=== PATIENT | female | born 1970 | race Caucasian/White ===

== ENCOUNTER 2017-12-14 02:40 | Emergency (ER) | payer BC ==
[2017-12-14 05:00] VITALS: BP 149/84
--- NOTE | 2017-12-14 11:41 | ER ---
DATE SEEN: 12/14/2017 TIME SEEN: 0400 hours in the morning. REASON FOR VISIT: Head injury. HISTORY OF PRESENT ILLNESS: This is a 47-year-old female, who fell at home while coming out of the bathtub. She slipped and hit her head and does not remember much. She was brought in by the ambulance. She complains of no headache, but mild neck pain. No vomiting or seizure activity. She had only one drink before when away from work. ALLERGIES: Penicillin. REVIEW OF SYSTEMS: No weakness of one side, nausea, vomiting, seizure, or visual disturbance. MEDICATIONS: Reviewed. PHYSICAL EXAMINATION: VITAL SIGNS: Normal blood pressure; initially 207/97, but came down to 146/82, temperature was 98.3, and pulse was 73. HEAD: Normocephalic. There is a bruise and two superficial lacerations about a centimeter each on the forehead. NECK: No tenderness to palpation. EYES: GAYLE. Oropharynx is clear. CHEST: Normal. CARDIOVASCULAR: Normal. MENTAL STATUS: Alert. NEUROLOGIC: Cranial nerves II through XII are grossly intact. [place] coma scale is 15/15. No neurological deficits were noted or lateralizing signs. LABORATORY DATA: CBC and CMP were normal. DIAGNOSTIC STUDIES: CT of head and neck was negative. IMPRESSION: 1. Head injury. 2. Fall, initial encounter. 3. Simple laceration. PLAN: 1. Steri-Strips to the lacerations and wound care. 2. Tylenol and ibuprofen p.r.n. for pain. The patient is discharged home. Return to the ED with worsening symptoms. Return to PCP p.r.n. /[id number] DREW/PAL
== END 2017-12-14 05:18 | disposition home or self-care (01) ==
LOC: FB.ED 02:40
DX: S01.81XA Laceration without foreign body of other part of head, initial encounter (principal); W19.XXXA Unspecified fall, initial encounter
CPT/HCPCS: 36415; 70450; 72125; 80048; 85025; 93005; 99284

== ENCOUNTER 2018-03-12 02:35 | Emergency (ER) | payer BC ==
[2018-03-12] MEDS: Nitroglycerin 0.4 MG Tab.SL SL PRN ×3 (03:15→03:37)
[2018-03-12] MEDS ORDERED: Aspirin 81 MG Tab.Chew PO ONE (03:28)
[2018-03-12] MEDS ORDERED: Metoprolol Tartrate 25 MG Tab ONE (03:33)
[2018-03-12] MEDS ORDERED: Metoprolol Tartrate 50 MG Tab PO ONE (06:56)
[2018-03-12] MEDS ORDERED: Sodium Chloride 0.9% 10 ML Syringe FLUSH PRN (22:39)
[2018-03-12 22:48] VITALS: BP 149/78
== END 2018-03-12 06:43 | disposition home or self-care (01) ==
LOC: FB.ED 02:35
DX: I10 Essential (primary) hypertension (principal); Z88.0 Allergy status to penicillin
CPT/HCPCS: 36415; 80048; 81001; 84484; 85025; 85379; 99285; A9270; J7050

== ENCOUNTER 2019-09-24 14:18 | Emergency (ER) | payer BC ==
--- NOTE | 2019-09-24 16:19 | EDM.PDOC ---
ED HPI GENERAL MEDICAL PROBLEM - General Chief Complaint: ENT Problem Stated Complaint: Left Eye Pain Time Seen by Provider: 09/24/19 14:25 Source of Information: Reports: Patient History Limitations: Reports: No Limitations - History of Present Illness INITIAL COMMENTS - FREE TEXT/NARRATIVE: Patient presented to the ED because of pulsating ache ady the left rastafarian and left eye. There is no associated double or blurry vision or eye pain. She was seen by the employment appeals examiner 3 days ago and was given a prescription for prednisolone eye drops but didn't help. She laso c/o of left facial numbness but no weakness on the UE or LE, no neuro symptoms noted. - Related Data Allergies Allergy/AdvReac Type Severity Reaction Status Date / Time glycopyrrolate [From Little] Allergy Cannot Verified 09/24/19 14:44 Remember Penicillins Allergy Anaphylactic Verified 09/24/19 14:44 Shock Home Meds: Home Meds Escitalopram Oxalate [Lexapro] 10 mg PO DAILY 09/24/19 [History] Losartan [Cozaar] 50 mg PO DAILY 09/24/19 [History] Past Medical History - Past Health History Medical/Surgical History: Denies Medical/Surgical History Cardiovascular History: Reports: Hypertension Genitourinary History: Reports: None ADMISSIONS DEAN History: Reports: , Other (See Below) Other ADMISSIONS DEAN History: hyst with 1 ovary removed, Musculoskeletal History: Reports: None, Other (See Below) Other Musculoskeletal History: foot spurs, achilles problems Psychiatric History: Reports: Anxiety, Depression Endocrine/Metabolic History: Reports: Hypothyroidism, Obesity/BMI 30+ - Infectious Disease History Infectious Disease History: Reports: Chicken Pox - Past Surgical History HEENT Surgical History: Reports: Adenoidectomy, Oral Surgery, Tonsillectomy Cardiovascular Surgical History: Reports: None GI Surgical History: Reports: Appendectomy, Colonoscopy Female Surgical History: Reports: Breast Biopsy, Hysterectomy Musculoskeletal Surgical History: Reports: Arthroscopic Knee, Shoulder Surgery, Other (See Below) Other Musculoskeletal Surgeries/Procedures:: L shoulder surgery, toe amputation Social & Family History - Family History Family Medical History: Noncontributory Cardiac: Reports: [place], Stent Respiratory: Reports: Asthma GI: Reports: None : Reports: None OBGYN: Reports: None Musculoskeletal: Reports: Arthritis Neurological: Reports: CVA, TIA Psychiatric: Reports: None Endocrine/Metabolic: Reports: Diabetes, type II Hematologic: Reports: None Immunologic: Reports: None Oncologic: Reports: Breast, Ovarian - Tobacco Use Smoking Status *Q: Never Smoker Second Hand Smoke Exposure: No - Caffeine Use Caffeine Use: Reports: None - Recreational Drug Use Recreational Drug Use: No ED ROS ENT - Review of Systems Review Of Systems: See Below Constitutional: Reports: No Symptoms HEENT: Reports: No Symptoms Respiratory: Reports: No Symptoms Cardiovascular: Reports: No Symptoms Endocrine: Reports: No Symptoms GI/Abdominal: Reports: No Symptoms : Reports: No Symptoms Musculoskeletal: Reports: No Symptoms Skin: Reports: No Symptoms Neurological: Reports: No Symptoms. Denies: Headache ED EXAM, ENT - Physical Exam Exam: See Below Exam Limited By: No Limitations General Appearance: Alert, No Apparent Distress Eye Exam: Bilateral Eye: PERRL Ears: Normal External Exam, Normal Canal, Hearing Grossly Normal Nose: Normal Inspection, Normal Mucousa Mouth/Throat: Normal Inspection, Normal Gums Head: Atraumatic, Normocephalic Neck: Normal Inspection, Supple, Non-Tender, Full Range of Motion Respiratory/Chest: No Respiratory Distress, Lungs Clear, Normal Breath Sounds Cardiovascular: Normal Peripheral Pulses, Regular Rate, Rhythm, No Edema, No Gallop, No JVD, No Murmur GI/Abdominal: Normal Bowel Sounds, Soft, Non-Tender, No Organomegaly Back: Normal Inspection, Full Range of Motion Extremities: Normal Inspection, Normal Range of Motion Neurological: Alert, Oriented, CN II-XII Intact, Normal Cognition, Normal Gait, Normal Reflexes, No Motor/Sensory Deficits Psychiatric: Normal Affect, Normal Mood Skin: Warm Course - Vital Signs Text/Narrative:: Patient was referred to the Opthalmologist recreation activities coordinator at [facility] and wants patient to be seen in the ED where he will evaluate patient in the ED Patient opted to be transferred by a private car with her friend driving her. Case was discussed with Dr Sánchez- [facility]AD[facility] doctor in [facility]. Last Recorded V/S: Last Vital Signs Temp 36.8 C 09/24/19 16:22 Pulse 62 09/24/19 16:22 Resp 14 09/24/19 16:22 BP 144/73 H 09/24/19 16:22 Pulse Ox 100 09/24/19 16:22 - Orders/Labs/Meds Labs: Laboratory Tests 09/24/19 09/24/19 09/24/19 Range/Units 14:55 14:55 14:55 WBC 5.0 (4.5-12.0) X10-3/uL RBC 4.82 (3.23-5.20) x10(6)uL Hgb 14.1 (11.5-15.5) g/dL Hct 42.6 (30.0-51.3) % MCV 88.4 (80-96) fL MCH 29.3 (27.7-33.6) pg MCHC 33.1 (32.2-35.4) g/dL RDW 13.5 (11.5-15.5) % Plt Count 293 (125-369) X10(3)uL MPV 7.8 (7.4-10.4) fL Neut % (Auto) 65.0 (46-82) % Lymph % (Auto) 23.8 (13-37) % Iron % (Auto) 8.3 (4-12) % Eos % (Auto) 2 (1.0-5.0) % Baso % (Auto) 1 (0-2) % Neut # (Auto) 3.3 (1.6-8.3) # Lymph # (Auto) 1.2 (0.6-5.0) # Iron # (Auto) 0.4 (0.0-1.3) # Eos # (Auto) 0.1 (0.0-0.8) # Baso # (Auto) 0.0 (0.0-0.2) # ESR 6 (0-20) mm/hr Sodium 144 (135-145) mmol/L Potassium 4.4 (3.5-5.3) mmol/L Chloride 105 (100-110) mmol/L Carbon Dioxide 32 (21-32) mmol/L BUN 13 (7-18) mg/dL Creatinine 0.6 (0.55-1.02) mg/dL Est Cr Clr Drug Dosing 128.01 mL/min Estimated GFR (MDRD) > 60 (>60) BUN/Creatinine Ratio 21.7 H (9-20) Glucose 108 (80-116) mg/dL Calcium 9.0 (8.6-10.2) mg/dL Total Bilirubin 0.4 (0.1-1.3) mg/dL AST 20 (5-25) IU/L ALT 30 (12-36) U/L Alkaline Phosphatase 70 (56-112) IU/L C-Reactive Protein 0.2 L (0.5-0.9) mg/dL Total Protein 7.1 (6.0-8.0) g/dL Albumin 3.7 (3.5-5.2) g/dL Globulin 3.4 g/dL Albumin/Globulin Ratio 1.1 Departure - Departure Time of Disposition: 16:20 Disposition: DC/Tfer to Acute Hospital 02 Condition: Good Clinical Impression: Eye pressure, Neuritis - Discharge Information Instructions: Visual Disturbances Referrals: Jorge Castellano PA-C [Primary Care Provider] - Forms: ED Department Discharge Additional Instructions: please proceed to [facility] in [place] [address] [place], [place] Sepsis Event Note - Evaluation Sepsis Screening Result: No Definite Risk - Focused Exam Date Exam was Performed: 09/25/19 Time Exam was Performed: 08:24
[2019-09-24 16:23] VITALS: BP 144/73; PULSE 62
== END 2019-09-24 17:15 ==
LOC: FB.ED 14:18
DX: M79.2 Neuralgia and neuritis, unspecified (principal); H57.12 Ocular pain, left eye; Z88.0 Allergy status to penicillin; Z88.8 Allergy status to other drugs, medicaments and biological substances; Z79.899 Other long term (current) drug therapy
CPT/HCPCS: 36415; 80053; 85025; 85651; 86140; 99284

== ENCOUNTER 2021-09-08 08:55 | Day surgery (SDC) | payer BC ==
[2021-09-08] MEDS ORDERED: Lidocaine 2% 100 MG/5 ML Syringe IVPUSH ONE (08:56)
[2021-09-08] MEDS ORDERED: Flumazenil 0.1 MG/ML 5 ML MDV IV ONE (08:56)
[2021-09-08] MEDS ORDERED: Midazolam 1 MG/ML 2 ML SDV IV ONE (08:56)
[2021-09-08] MEDS ORDERED: Propofol 200 MG/20 ML SDV IV ONE (08:56)
[2021-09-08] MEDS ORDERED: Lactated Ringers 1,000 ML IV SCH (09:00)
[2021-09-08] MEDS ORDERED: Sodium Chloride 0.9% 10 ML Syringe FLUSH PRN (09:00)
[2021-09-08 12:24] VITALS: BP 119/71; PULSE 46
== END 2021-09-08 12:10 | disposition home or self-care (01) ==
LOC: FB.SDS 08:55
PROVIDERS: ATTEND Surgery
DX: K21.00 Gastro-esophageal reflux disease with esophagitis, without bleeding (principal); R13.10 Dysphagia, unspecified; E03.9 Hypothyroidism, unspecified; I10 Essential (primary) hypertension; F41.9 Anxiety disorder, unspecified; E66.01 Morbid (severe) obesity due to excess calories; I73.9 Peripheral vascular disease, unspecified; Z90.49 Acquired absence of other specified parts of digestive tract; Z98.890 Other specified postprocedural states; Z68.26 Body mass index [BMI] 26.0-26.9, adult; Z79.899 Other long term (current) drug therapy; Z88.0 Allergy status to penicillin; Z88.1 Allergy status to other antibiotic agents; Z88.8 Allergy status to other drugs, medicaments and biological substances
CPT/HCPCS: 00731; 43239; 88305; J2250; J2704; J3490; J7120

== ENCOUNTER 2022-02-16 07:05 | Day surgery (SDC) | payer BC ==
[2022-02-16] MEDS ORDERED: Propofol 200 MG/20 ML SDV IV ONE (07:06)
[2022-02-16] MEDS ORDERED: Midazolam 1 MG/ML 2 ML SDV IV ONE (07:06)
[2022-02-16 07:53] VITALS: BP 128/66; PULSE 60
[2022-02-16] MEDS: Lactated Ringers 1,000 ML IV SCH (07:53)
[2022-02-16] MEDS ORDERED: Sodium Chloride 0.9% 10 ML Syringe FLUSH PRN (08:15)
== END 2022-02-16 10:17 | disposition home or self-care (01) ==
LOC: FB.SDS 07:05
PROVIDERS: ATTEND Surgery
DX: K57.31 Diverticulosis of large intestine without perforation or abscess with bleeding (principal); F41.9 Anxiety disorder, unspecified; F32.A Depression, unspecified; K21.9 Gastro-esophageal reflux disease without esophagitis; E78.5 Hyperlipidemia, unspecified; I10 Essential (primary) hypertension; E03.9 Hypothyroidism, unspecified; E66.01 Morbid (severe) obesity due to excess calories; Z86.010 Personal history of colon polyps; Z79.899 Other long term (current) drug therapy; Z79.82 Long term (current) use of aspirin; Z88.0 Allergy status to penicillin; Z88.8 Allergy status to other drugs, medicaments and biological substances; Z79.890 Hormone replacement therapy; Z90.49 Acquired absence of other specified parts of digestive tract; Z98.890 Other specified postprocedural states; Z68.27 Body mass index [BMI] 27.0-27.9, adult
CPT/HCPCS: 00811-QZ; J2250; J2704; J7120

== ENCOUNTER 2023-03-05 17:59 | Emergency (ER) | payer OTHER, BC ==
[2023-03-05] MEDS ORDERED: Sodium Chloride 0.9% 10 ML Syringe FLUSH PRN (18:02)
[2023-03-05 18:20] LABS: BASOPHILS PERCENT AUTO 0.8 % (0.2-1.5); EOSINOPHILS ABSOLUTE AUTO 0.1 x10-3/uL (0.0-0.8); EOSINOPHILS PERCENT AUTO 1.8 % (0.6-8.1); HEMOGLOBIN 12.3 g/dL (11.4-15.5); LYMPHOCYTES ABSOLUTE AUTO 1.4 x10-3/uL (1.0-4.4); LYMPHOCYTES PERCENT AUTO 21.7 % (18.4-52.1); MEAN CORPUSCULAR HEMOGLOBIN 29.4 pg (23.9-33.9); MEAN CORPUSCULAR HGB CONC 33.1 g/dL (31.9-34.8); MEAN CORPUSCULAR VOLUME 88.7 fL (76.7-100.5); MONOCYTES ABSOLUTE AUTO 0.5 x10-3/uL (0.3-1.0); MONOCYTES PERCENT AUTO 8.2 % (4.4-15.7); NEUTROPHILS ABSOLUTE AUTO 4.3 x10-3/uL (1.5-6.3); NEUTROPHILS PERCENT AUTO 67.5 % (30.8-76.2); PLATELET COUNT,PLT 253 x10(3)uL (151-488); RED BLOOD CELL COUNT 4.17 x10(6)uL (3.60-5.20); RED CELL DISTRIBUTION WIDTH 14.6 % (12.3-16.5); WHITE BLOOD CELL COUNT,WBC 6.4 x10-3/uL (3.0-10.3)
[2023-03-05 18:25] LABS: BLOOD UREA NITROGEN,BUN 17 mg/dL (7-18); BUN/CREATININE RATIO 21.3 (9-20); CALCIUM 9.5 mg/dL (8.6-10.2); CARBON DIOXIDE,CO2 31 mmol/L (21-32); CHLORIDE,CL 100 mmol/L (100-110); CREATININE 0.8 mg/dL (0.55-1.02); ESTIMATED GFR 88 mL/min (>60); GLUCOSE RANDOM 122 mg/dL (80-116); POTASSIUM,K 3.9 mmol/L (3.5-5.3); SODIUM,NA 138 mmol/L (135-145)
[2023-03-05] MEDS ORDERED: Ketorolac 30 MG/ML SDV IVPUSH ONE (18:25)
[2023-03-05 18:30] LABS: A/G RATIO 1.1; ALANINE AMINOTRANSFERASE,ALT 36 U/L (12-36); ALBUMIN 3.7 g/dL (3.5-5.2); ALKALINE PHOSPHATASE 90 IU/L (56-112); ASPARTATE AMNIOTRANSFERASE,AST 22 IU/L (5-25); BILIRUBIN TOTAL 0.3 mg/dL (0.1-1.3); PROTEIN TOTAL,TP 7.2 g/dL (6.0-8.0)
[2023-03-05 18:31] LABS: INR 1.1 (1.00-1.24); PROTHROMBIN TIME 11.3 sec (9.0-11.1)
[2023-03-05 18:39] LABS: BILIRUBIN,URINE NEGATIVE (NEGATIVE); GLUCOSE,URINE NORMAL (NORMAL); KETONES,URINE NEGATIVE (NEGATIVE); LEUKOCYTE ESTERASE,URINE NEGATIVE (NEGATIVE); NITRITE,URINE NEGATIVE (NEGATIVE); OCCULT BLOOD,URINE NEGATIVE (NEGATIVE); PROTEIN,URINE NEGATIVE (NEGATIVE); UROBILINOGEN,URINE NORMAL (NEGATIVE)
[2023-03-05 18:44] LABS: APPEARANCE,URINE CLEAR (CLEAR); BACTERIA,URINE OCCASIONAL (NS); COLOR,URINE YELLOW (YELLOW); RBC,URINE 0-5 (0-5); SQUAMOUS EPITHELIAL CELLS,UR OCCASIONAL (NS,R,O); WBC,URINE 0-5 (0-5)
[2023-03-05] MEDS ORDERED: Sodium Chloride 0.9% 1,000 ML IV SCH (18:45)
[2023-03-05] MEDS ORDERED: Cyclobenzaprine 10 MG Tab PO ONE (19:20)
[2023-03-05 19:46] VITALS: BP 148/76; PULSE 59
== END 2023-03-05 19:51 | disposition home or self-care (01) ==
LOC: FB.ED 17:59
DX: S16.1XXA Strain of muscle, fascia and tendon at neck level, initial encounter (principal); S46.911A Strain of unspecified muscle, fascia and tendon at shoulder and upper arm level, right arm, initial encounter; E78.00 Pure hypercholesterolemia, unspecified; E03.9 Hypothyroidism, unspecified; I10 Essential (primary) hypertension; K21.9 Gastro-esophageal reflux disease without esophagitis; Z88.1 Allergy status to other antibiotic agents; Z88.0 Allergy status to penicillin; Z88.8 Allergy status to other drugs, medicaments and biological substances; Z79.82 Long term (current) use of aspirin; V49.40XA Driver injured in collision with unspecified motor vehicles in traffic accident, initial encounter; Y92.410 Unspecified street and highway as the place of occurrence of the external cause
CPT/HCPCS: 36415; 70450; 72125; 73030-RT; 80053; 81001; 85025; 85610; 85730; 96374; 99283; 99284-25; A9270-GY; J1885; J7030

== ENCOUNTER 2023-07-30 10:44 | Emergency (ER) | payer BC, OTHER ==
[2023-07-30] MEDS ORDERED: Nitrofurantoin Monohydrate/Macrocrystalline 100 MG Cap PO ONE (10:45)
[2023-07-30 10:58] VITALS: BP 130/72; PULSE 68
[2023-07-30 11:06] LABS: BILIRUBIN,URINE NEGATIVE (NEGATIVE); GLUCOSE,URINE NORMAL (NORMAL); KETONES,URINE NEGATIVE (NEGATIVE); LEUKOCYTE ESTERASE,URINE LARGE (NEGATIVE); NITRITE,URINE NEGATIVE (NEGATIVE); OCCULT BLOOD,URINE LARGE (NEGATIVE); PROTEIN,URINE 30 mg/dL (NEGATIVE); UROBILINOGEN,URINE NORMAL (NEGATIVE)
[2023-07-30 11:12] LABS: APPEARANCE,URINE CLOUDY (CLEAR); BACTERIA,URINE MANY (NS); COLOR,URINE ORANGE (YELLOW); RBC,URINE >100 (0-5); SQUAMOUS EPITHELIAL CELLS,UR FEW (NS,R,O); WBC,URINE >100 (0-5)
== END 2023-07-30 11:43 | disposition home or self-care (01) ==
LOC: FB.ED 10:44
DX: N30.01 Acute cystitis with hematuria (principal); I10 Essential (primary) hypertension; E03.9 Hypothyroidism, unspecified; Z88.1 Allergy status to other antibiotic agents; Z88.0 Allergy status to penicillin; Z88.8 Allergy status to other drugs, medicaments and biological substances; Z79.899 Other long term (current) drug therapy; Z90.49 Acquired absence of other specified parts of digestive tract; Z90.710 Acquired absence of both cervix and uterus
CPT/HCPCS: 81001; 87086; 87088; 99283; A9270; 87186